=== PATIENT | male | born 1965 | race Caucasian/White ===

== ENCOUNTER → 2018-11-14 12:04 | Outpatient (CLI) | payer OTHER, SELFPAY ==
[2018-11-14 12:07] LABS: Adenovirus F 40/41, stool Not Detected (NotDetected); Astrovirus Not Detected (NotDetected); Campylobacter Not Detected (NotDetected); Clostridium Difficile A/B, PCR Not Detected (NotDetected); Cryptosporidium Not Detected (NotDetected); Cyclospora Cayetanesis Not Detected (NotDetected); Entamoeba histolytica Not Detected (NotDetected); Enteroaggregative E coli Not Detected (NotDetected); Enteropathogenic E coli Not Detected (NotDetected); Enterotoxigenic E coli Not Detected (NotDetected); Giardia lamblia Not Detected (NotDetected); Plesimonas Shigalloides, PCR Not Detected (NotDetected); Rotavirus A Not Detected (NotDetected); Salmonella, PCR Not Detected (NotDetected); Sapovirus Not Detected (NotDetected); Shiga-like toxin E coli Not Detected (NotDetected); Shigella Enterovasive E coli Not Detected (NotDetected); Vibrio Cholerae Not Detected (NotDetected); Vibrio, PCR Not Detected (NotDetected); Yersinia Entercolitica, PCR Not Detected (NotDetected)
[2018-11-14 15:10] LABS: Norovirus Detected (NotDetected)
== END ==
PROVIDERS: Visit Provider Nurse Practitioner Family
DX: R19.7 Diarrhea, unspecified (principal)
CPT/HCPCS: 87507

== ENCOUNTER 2022-06-27 17:38 | Emergency (ER) | payer SELFPAY ==
--- NOTE | 2022-06-27 17:45 | PC.NURSE ---
Brought pt into triage room for assessment. PT advises that he was helping his dad walk earlier this date when his dad became weak and fell. Pt advises he is having pain in between his shoulders and neck. that feels tingly and burning. V/S were: 130/84 HR 77 O2 sats 99% on room air Advised pt that ED volume was increased at this time and we would get him back as soon as we could. PT agreeable at this time
[2022-06-27 20:49] VITALS: BP 0/0; PULSE 0; RESP 0; TEMP -17.7; TEMP 0; O2SAT 0
== END 2022-06-27 20:59 | disposition left against medical advice (07) ==
LOC: ER 20:58
PROVIDERS: Emergency Provider Emergency Medicine; PCP Family Medicine
DX: Z53.21 Procedure and treatment not carried out due to patient leaving prior to being seen by health care provider (principal)

== ENCOUNTER 2022-08-17 08:33 | Emergency (ER) | payer OTHER, SELFPAY ==
[2022-08-17 08:50] VITALS: BP 128/76; PULSE 87; RESP 18; TEMP 36.9; O2SAT 98; BMI 26.7
--- NOTE | 2022-08-17 09:05 | EXP.UTC ---
Discharge Plan Disposition Patient Disposition: Home, Self-Care Condition: Good Prescriptions Prescriptions: New ondansetron 4 mg tablet,disintegrating 4 mg PO Q8H PRN (Reason: nausea and vomiting) Qty: 10 0RF No Action olanzapine 5 mg tablet 5 mg PO DAILY 30 Days Qty: 15 fluoxetine 40 mg capsule 40 mg PO DAILY 30 Days Qty: 30 pravastatin 10 mg tablet 10 mg PO DAILY 30 Days Qty: 30 Referrals Follow up/Referrals: Regine Bauman MD [Primary Care Provider] - See instructions Activity Restrictions/Add. Instructions Additional Instructions/Restrictions: Drink extra fluids with and between meals. If you have difficulty drinking, try very small amounts of water or suck on ice chips. ? Avoid fruit juices, as these do not replace minerals and can actually increase diarrhea. ? Children and adults can use sports drinks to replenish electrolytes. Younger children and infants should use products formulated for children, like oral rehydration solutions. ? Eat food in small amounts and let your stomach recover. ? Get lots of rest. You may feel tired or weak. ? No greasy or fried foods for the next 24-48 hours BRAT diet Bananas Rice Apples and [place] ? Make sure to drink plenty of liquids ? Return if needed ? Straight to ER if any life threatening symptoms ? Zofran as prescribed ? You was given an outpatient order for diarrhea panel, please collect specimen and bring back to outpatient lab then call back to the [facility] or follow up with family doctor for results ? Follow up with family doctor in the next 48-72 hours if no improvement or any worsening of symptoms Clinical Impressions Clinical Impression: Nausea vomiting and diarrhea Instructions Patient Instructions: Diarrhea, DI for Nausea -- Adult, Nausea and Vomiting-Adult Discharge ED Provider: Sofi Santos [facility] HPI General Stated complaint: Abd pain, vomitting, diarrhea Mode of Arrival: Ambulatory Source of Information: Patient Limitations: No Limitations Time Seen by Provider: 01/11/23 08:50 Description of Symptoms (Recalled from Triage Doc. by RN): stomach virus, vomiting, diarrhea HEENT Symptoms (Recalled from RN notes): No Resp Symptoms (Recalled from RN notes): No Skin Symptoms (Recalled from RN notes): No MS Symptoms (Recalled from RN notes): No Functional Status (Recalled from RN notes): n/a Related Data Home Medications Medication Instructions Recorded Confirmed fluoxetine 40 mg capsule 40 mg PO DAILY mood 30 days ##30 02/26/18 08/17/22 olanzapine 5 mg tablet 5 mg PO DAILY Anxiety 30 days ##15 02/26/18 08/17/22 pravastatin 10 mg tablet 10 mg PO DAILY Cholesterol 30 days 02/26/18 08/17/22 ##30 Previous Rx's Medication Instructions Recorded ondansetron 4 mg disintegrating 4 mg PO Q8H PRN nausea and 08/17/22 tablet vomiting #10 tabs Allergies Allergy/AdvReac Type Severity Reaction Status Date / Time No Known Allergies Allergy Verified 08/17/22 08:55 Worker's Comp Is this a Worker's Comp case?: No [facility] Disclaimer: The information contained in this section may have been updated after the patient was seen, as this information can be updated by other users. Social History Smoking Status: Never smoker alcohol intake: never current occupational status: employed Travel in the last 8 weeks: None household members: family housing: house caffeine: No ROS Obtained: Yes All systems reviewed & no additional complaints except as documented and Yes Systems reviewed as appropriate & no additional complaints except as documented ENT Ears, Nose, Mouth, and Throat: Reports system reviewed and no additional complaints, except as documented and Reports as per HPI Respiratory Respiratory: Reports system reviewed and no additional complaints, except as documented and Reports as per HPI Gastrointestinal Gastrointestingal: Reports
[2022-08-17 09:24] LABS: Coronavirus 19, PCR Not Detected (NotDetected); Influenza A, PCR Not Detected (NotDetected); Influenza B, PCR Not Detected (NotDetected)
[2022-08-17 09:49] VITALS: BP 128/76; PULSE 87; RESP 19; TEMP 36.9; O2SAT 98
== END 2022-08-17 09:48 | disposition home or self-care (01) ==
PROVIDERS: Emergency Provider Nurse Practitioner; PCP Family Medicine
DX: R11.2 Nausea with vomiting, unspecified (principal); R19.7 Diarrhea, unspecified
CPT/HCPCS: 99212; 99213; C9803; G0463; J2405; U0003; U0005

== ENCOUNTER → 2022-08-17 11:17 | Outpatient (CLI) | payer OTHER, SELFPAY ==
[2022-08-17 11:22] LABS: Adenovirus F 40/41, stool Not Detected (NotDetected); Astrovirus Not Detected (NotDetected); Campylobacter Not Detected (NotDetected); Clostridium Difficile A/B, PCR Not Detected (NotDetected); Cryptosporidium Not Detected (NotDetected); Cyclospora Cayetanesis Not Detected (NotDetected); Entamoeba histolytica Not Detected (NotDetected); Enteroaggregative E coli Not Detected (NotDetected); Enteropathogenic E coli Not Detected (NotDetected); Enterotoxigenic E coli Not Detected (NotDetected); Giardia lamblia Not Detected (NotDetected); Plesimonas Shigalloides, PCR Not Detected (NotDetected); Rotavirus A Not Detected (NotDetected); Salmonella, PCR Not Detected (NotDetected); Sapovirus Not Detected (NotDetected); Shiga-like toxin E coli Not Detected (NotDetected); Shigella Enterovasive E coli Not Detected (NotDetected); Vibrio Cholerae Not Detected (NotDetected); Vibrio, PCR Not Detected (NotDetected); Yersinia Entercolitica, PCR Not Detected (NotDetected)
[2022-08-17 17:12] LABS: Norovirus Detected (NotDetected)
--- NOTE | 2022-08-17 17:15 | PC.NURSE ---
Spoke with Pt about critical stool lab results.
== END ==
PROVIDERS: PCP Family Medicine; Visit Provider Nurse Practitioner
DX: R19.7 Diarrhea, unspecified (principal); A08.11 Acute gastroenteropathy due to Norwalk agent
CPT/HCPCS: 87507

== ENCOUNTER 2023-07-17 11:37 | Emergency (ER) | payer OTHER, SELFPAY ==
[2023-07-17 11:50] VITALS: BP 162/97; PULSE 80; RESP 18; TEMP 36.7; O2SAT 98; BMI 29.1
--- NOTE | 2023-07-17 11:58 | EXP.UTC ---
Discharge Plan Disposition Patient Disposition: Home, Self-Care Condition: Good Prescriptions Prescriptions: New azithromycin [Zithromax] 250 mg tablet 250 mg PO UD DOSE PK Qty: 6 0RF Rx Instructions: Take two (2) tablets today, then one (1) tablet days #2 thru #5 benzonatate [benzonatate] 100 mg capsule 100 mg PO TIDP PRN (Reason: Cough) Qty: 30 0RF ondansetron 4 mg Tablet,Disintegrating 4 mg PO Q8H PRN (Reason: Nausea) Qty: 12 0RF No Action olanzapine 5 mg tablet 5 mg PO DAILY 30 Days Qty: 15 fluoxetine 40 mg capsule 40 mg PO DAILY 30 Days Qty: 30 pravastatin 10 mg tablet 10 mg PO DAILY 30 Days Qty: 30 pravastatin 20 mg tablet 20 mg PO DAILY Patient Comments: TAKE 1 TABLET BY MOUTH ONCE DAILY Referrals Follow up/Referrals: Regine Bauman MD [Primary Care Provider] - See instructions Activity Restrictions/Add. Instructions Additional Instructions/Restrictions: Drink plenty of fluids. Take tylenol or ibuprofen for pain or fever. Take the medications as directed. Follow up with your regular doctor. GO TO THE ER FOR ANY WORSENING SYMPTOMS Clinical Impressions Clinical Impression: Acute viral syndrome, Sinusitis Instructions Patient Instructions: DI for Viral Syndrome, Coronavirus Disease 2019, Preventing the Spread of Coronavirus Discharge Instructions Discharge ED Provider: Byron Coppola [facility] General Stated complaint: cough,headache,achey,runny nose Time Seen by Provider: 07/17/23 11:58 History of Present Illness Provider Complaint: He states that for the past 4 days he has had headache, cough, chest and sinus congestion, and body aches. Related Data Home Medications Medication Instructions Recorded Confirmed fluoxetine 40 mg capsule 40 mg PO DAILY mood 30 days ##30 02/26/18 07/17/23 olanzapine 5 mg tablet 5 mg PO DAILY Anxiety 30 days ##15 02/26/18 07/17/23 pravastatin 10 mg tablet 10 mg PO DAILY Cholesterol 30 days 02/26/18 07/17/23 ##30 pravastatin 20 mg tablet 20 mg PO DAILY 07/17/23 07/17/23 Previous Rx's Medication Instructions Recorded azithromycin 250 mg tablet 250 mg PO UD DOSE PK #6 tabs 07/17/23 (Zithromax) benzonatate 100 mg capsule 100 mg PO TIDP PRN Cough #30 caps 07/17/23 ondansetron 4 mg disintegrating 4 mg PO Q8H PRN Nausea #12 tabs 07/17/23 tablet Allergies Allergy/AdvReac Type Severity Reaction Status Date / Time No Known Allergies Allergy Verified 07/17/23 12:03 [facility] Disclaimer: The information contained in this section may have been updated after the patient was seen, as this information can be updated by other users. Social History Smoking Status: Never smoker alcohol intake: never current occupational status: employed Travel in the last 8 weeks: None household members: family housing: house caffeine: No ROS Obtained: Yes All systems reviewed & no additional complaints except as documented Constitutional Constitutional: Reports chills and Reports fever(s) Eyes Eyes: Denies eye discharge ENT Ears, Nose, Mouth, and Throat: Reports as per HPI Cardiovascular Cardiovascular: Denies chest pain Respiratory Respiratory: Denies chest congestion and Reports cough Gastrointestinal Gastrointestingal: Reports nausea; Denies abdominal pain, constipation, cramping, diarrhea or vomiting Musculoskeletal Musculoskeletal: Denies arthralgias Integumentary/Breasts Skin/Breast: Denies rash Neurologic Neurologic: Denies paresthesias Physical Exam General General appearance: alert and in no apparent distress Eye Eye exam: Present normal appearance, PERRL and EOMI ENT ENT exam: Present mucous membranes moist and normal external ear exam Expanded ENT Exam External ear exam: Present normal external inspection TM/Canal exam: Bilateral TM: erythema and bulging Nose exam: Absent sinus tenderness Nasal speculum exam: Bilater
[2023-07-17 12:06] LABS: UTC Influenza A Antigen Negative (Negative); UTC Influenza B Antigen Negative (Negative)
[2023-07-17 12:44] VITALS: BP 142/97; PULSE 80; RESP 18; TEMP 36.7; O2SAT 98
== END 2023-07-17 12:44 | disposition home or self-care (01) ==
PROVIDERS: Emergency Provider Nurse Practitioner Family; PCP Family Medicine
DX: J01.90 Acute sinusitis, unspecified (principal); R51.9 Headache, unspecified; R05.9 Cough, unspecified; R09.81 Nasal congestion; R09.89 Other specified symptoms and signs involving the circulatory and respiratory systems; M79.18 Myalgia, other site; B34.9 Viral infection, unspecified
CPT/HCPCS: 87635; 87804; 99212; 99214; G0463

== ENCOUNTER 2024-05-15 09:36 | Outpatient (CLI) | payer OTHER, SELFPAY ==
--- NOTE | 2024-05-15 09:50 | XR_ITS ---
FINAL REPORT CLINICAL HISTORY: Acute cough FINDINGS: Two views of the chest were obtained. The heart size and pulmonary vascularity are within normal limits. The mediastinum is normal. No acute pulmonary abnormality is identified. There is no pneumothorax. The bony thorax is intact. IMPRESSION: No active cardiopulmonary disease. Reviewed, Interpreted and Dictated by Corenlio Bates III, MD Transcribed by Nicol Connell Authenticated and [facility]
== END 2024-05-15 23:59 | disposition home or self-care (01) ==
PROVIDERS: PCP Family Medicine; Visit Provider Family Medicine
DX: R05.9 Cough, unspecified (principal)
CPT/HCPCS: 71046

== ENCOUNTER 2024-07-26 14:14 | Emergency (ER) | payer OTHER, SELFPAY ==
[2024-07-26 14:25] VITALS: BP 131/86; PULSE 74; RESP 19; TEMP 36.6; O2SAT 98; BMI 27.8
--- NOTE | 2024-07-26 14:38 | ED_ITS ---
Discharge Plan Disposition Patient Disposition: Home, Self-Care Condition: Good Prescriptions Prescriptions: No Action No Known Home Medications Referrals Follow up/Referrals: Regine Bauman MD [Primary Care Provider] - See instructions Activity Restrictions/Add. Instructions Additional Instructions/Restrictions: *RICE, Rest the extremity, Ice 15-20 minutes 3-4 times daily, Compress- wear the yue wrap as discussed as much as possible to help reduce swelling and pain, Elevate the extremity when at rest *Elevate when resting? *Ibuprofen as directed on package every 6-8 hours as needed for pain an inflammation. If need something more can take Tylenol in between doses of Ibuprofen to help Immediately follow up with your family doctor for new or worsening of symptoms, or no noticeable improvement over the next 3-5 days Make sure to follow up for xrays if pain and symptoms continue Clinical Impressions Clinical Impression: Fall Qualifiers: Encounter type: initial encounter Qualified Code(s): W19.XXXA - Unspecified fall, initial encounter Instructions Patient Instructions: How To Perform RICE (Rest, Ice, Compress, Elevate), DI for Abrasion Print Language Print Language: Omani Discharge ED Provider: Sofi Santos [facility] General Stated complaint: ao 07/26, L arm/collar bone pain Mode of Arrival: Ambulatory Source of Information: Patient Limitations: No Limitations Time Seen by Provider: 07/26/24 14:38 Description of Symptoms (Recalled from Triage Doc. by RN): PATIENT STATES THAT HE FELL TODAY AND C/O LEFT KNEE, CHEST, AND LOWER BACK PAIN HEENT Symptoms (Recalled from RN notes): No Resp Symptoms (Recalled from RN notes): No Skin Symptoms (Recalled from RN notes): No MS Symptoms (Recalled from RN notes): Yes Functional Status (Recalled from RN notes): WNL History of Present Illness Provider Complaint: Patient states that he fell earlier today, states that he has a scratch on his left elbow but able to move and bend it without difficulty, having some collar bone pain thinks that when he fell his chin hit the center of his chest and that is sore, kind of twisted his back a little and bumped his knee States that he didnt hit his head and denies LOC states that he just wanted to get checked and get his elbow cleaned up Related Data Home Medications ?Medication ?Instructions ?Recorded ?Confirmed No Known Home Medications 07/26/24 07/26/24 Allergies Allergy/AdvReac Type Severity Reaction Status Date / Time No Known Allergies Allergy Verified 07/17/23 12:03 Worker's Comp Is this a Worker's Comp case?: No [facility] Disclaimer: The information contained in this section may have been updated after the patient was seen, as this information can be updated by other users. Medical History (Updated 07/26/24 @ 14:47 by Sofi Santos APRN) Depression Anxiety Hyperlipidemia Surgical History (Updated 07/26/24 @ 14:38 by Cristel Chaudhary RN) H/O left wrist surgery Social History Smoking Status: Never smoker alcohol intake: never current occupational status: employed Travel in the last 8 weeks: None household members: family housing: house caffeine: No Have you lived/traveled outside [place] in past 30 days?: No Contact w/someone who lives/traveled outside [place] past 30 days?: No Exposure to someone with infectious disease in past 14 days?: No Do you have a fever (greater than 100.4 F or 38 C)?: No Have you tested positive for COVID-19: No Exposed to someone with COVID-19 in past 14 days?: No Do you have a sore throat?: No Do you have a cough?: No Do you have any weakness?: No Do you have any diarrhea?: No Are you experiencing any unusual bleeding?: No Do you have any muscle aches/pain?: Yes Do you have any abdominal pain?: No Are you experiencing loss of taste or smell?: No ROS Obtained: Yes All systems reviewed & no additional complaints except as documented and Yes Systems reviewed as appropriate & no additional complaints except as documented Constitutional Constitutional: Reports system reviewed and no additional complaints, except as documented, Reports as per HPI and Denies headache(s) ENT Ears, Nose, Mouth, and Throat: Reports system reviewed and no additional complaints, except as documented, Reports as per HPI and Denies headache(s) Cardiovascular Cardiovascular: Reports system reviewed and no additional complaints, except as documented and Reports as per HPI Respiratory Respiratory: Reports system reviewed and no additional complaints, except as documented and Reports as per HPI Gastrointestinal Gastrointestingal: Reports system reviewed and no additional complaints, except as documented and as per HPI Genitourinary Male Genitourinary: Reports system reviewed and no additional complaints, except as documented and Reports as per HPI Musculoskeletal Musculoskeletal: Reports system reviewed and no additional complaints, except as documented and Reports as per HPI Comments: collar bone pain, left elbow abrasion, contusion to left knee, hit chin on center of chest, denies neck pain reports feels like he pulled his back a little on left side Neurologic Neurologic: Denies headache(s) Physical Exam General General appearance: alert and in no apparent distress Eye Eye exam: Present normal appearance, PERRL and EOMI ENT ENT exam: Present normal exam, normal oropharynx, mucous membranes moist and TM's normal bilaterally Neck Neck exam: Present normal inspection, full ROM and trachea midline; Absent tenderness Chest Chest inspection: Present tenderness Expanded Chest Exam Male Torso: 2 1. reports tenderness with palpation, no obvious bruising noted, reports when he fell chin hit the area and now it is sore Respiratory Respiratory exam: Present normal lung sounds bilaterally; Absent respiratory distress or wheezes Cardiovascular Cardiovascular exam: Present regular rate, normal rhythm and normal heart sounds Expanded Upper Extremity Exam Left: Shoulder exam: Present normal inspection, full ROM, tenderness and other (tenderness noted over clavicle area with palpation); Absent swelling, abrasion, laceration or ecchymosis Arm exam: Present normal inspection Elbow exam: Present abrasion (abrasion noted, patient moving and bending elbow without difficulty) Expanded Lower Extremity Exam Left: Knee exam: Present normal inspection and full ROM; Absent tenderness, swelling or abrasion Lower leg exam: Present normal inspection Ankle exam: Present normal inspection Foot/toe exam: Present normal inspection Neurovascular/Tendon exam: Present normal capillary refill Neurological Exam Neurological exam: Present alert, oriented X3 and normal gait Medical Decision Making Medical Records Screening: Per USPSTF and CDC recommendations, given the prevalence of disease in our region, it is our hospital?s policy to screen for HIV and viral Hepatitis for all patients aged 18 and over and those with ongoing risk factors. Miles Inquiry Pt receiving controlled substance: No Miles was queried for this patient: No Vital Signs: 07/26/24 14:25 Temperature 97.8 F Temperature Source Oral Pulse Rate [Left Brachial] 74 Respiratory Rate 19 Blood Pressure [Left Arm] 131/86 Blood Pressure Mean [Left Arm] 101 Blood Pressure Source [Left Arm] Automatic Cuff Blood Pressure Position [Left Arm] Sitting 02 Sat by Pulse Oximetry 98 Oxygen Delivery Method Room Air Medical Decision Narrative: Discussed with patient about xrays to make sure nothing is broken and he declined States that he wants elbow cleaned up and bandaged and he wants to go home if he is still having pain tomorrow he will return for xrays Patient aware of risks and declined at this time, states has at home that doesnt drive and wants to get home, Patient again informed of recommendation of xray and he declined again aware of risks even states just wants elbow looked at and go home
[2024-07-26 14:48] VITALS: BP 131/86; PULSE 74; RESP 19; TEMP 36.6; O2SAT 98
== END 2024-07-26 14:51 | disposition home or self-care (01) ==
PROVIDERS: Emergency Provider Nurse Practitioner; PCP Family Medicine
DX: W19.XXXA Unspecified fall, initial encounter (principal); M79.602 Pain in left arm; M25.512 Pain in left shoulder; M25.562 Pain in left knee; M54.50 Low back pain, unspecified
CPT/HCPCS: 99212; G0381

== ENCOUNTER 2024-10-11 13:04 | Emergency (ER) | payer OTHER, SELFPAY ==
[2024-10-11 13:08] VITALS: BP 129/87; PULSE 92; RESP 27; TEMP 36.6; O2SAT 100; BMI 24.4
--- NOTE | 2024-10-11 13:09 | PC.NURSE ---
Pt brought back to triage room for assessment. He is A&Ox4 but tremulous, and reports I don't know, maybe my sugar is off . FS 90.
--- NOTE | 2024-10-11 13:13 | PC.NURSE ---
Dr Lagos in triage room for assessment
--- NOTE | 2024-10-11 13:15 | XR_ITS ---
FINAL REPORT CLINICAL HISTORY: chest pain FINDINGS: CHEST 2 VIEWS PA AND LATERAL The heart is normal in size. The mediastinum is unremarkable. The lungs are clear. There is no pneumothorax. IMPRESSION: No acute process. Reviewed, Interpreted and Dictated by Escobar Mora MD Transcribed by Nnacy Saravia Authenticated and [facility]
--- NOTE | 2024-10-11 13:18 | ECG_ITS ---
APPROVED REPORT Exam: Resting ECG HR:95 bpm ECG Measurements Heart Rate 95 AXES QRSd 77 QRS 16 QT 345 T 71 QTc 398 Conclusion SUPRAVENTRICULAR RHYTHM ABNORMAL RHYTHM ECG UNCONFIRMED REPORT Electronically signed by : TARAH BRUNO, 10/12/2024 05:44:30
[2024-10-11 13:39] LABS: VBG Base Excess -1.4 mmol/L (-2.4-2.3); VBG HCO3 20.9 mmol/L (23-30); VBG Oxygen Saturation 84.7 % (50-70); VBG Total CO2 21.6 mmol/L (23-27)
[2024-10-11 13:43] LABS: Lactate Venous 2.4 mmol/L (0.4-2.0); VBG PCO2 24.1 mmol/L (35-51); VBG PH 7.56 mmol/L (7.31-7.41)
--- NOTE | 2024-10-11 13:57 | ED_ITS ---
Discharge Plan Disposition Chief Complaint: Anxiety Prescriptions Prescriptions: No Action No Known Home Medications Referrals Follow up/Referrals: Regine Bauman MD [Primary Care Provider] - See instructions Print Language Print Language: Stateless Discharge ED Provider: Yary Lagos General Adult HPI General Chief complaint: Anxiety Stated complaint: poss blood sugar issue, shaking, Time Seen by Provider: 10/11/24 13:33 Mode of Arrival: Wheelchair Source of Information: Patient, Spouse and Medical Record Description of Symptoms (Recalled from ER Triage Doc. by RN): Pt c/o intermittent chest pain, SOA, weakness, dizziness, anxiety, and possible low blood sugar. States this has been happening since Mon (10/09). States he has been dealing with alot of court issues & custody issues with Grandchildren. He reports pain to ABD d/t I can't eat much . Rates pain 5/10 on [employer]. He reports dysuria. Pt is fatigued. He feels like he can't sleep and he hard to concentrate . History of Present Illness HPI narrative: Patient is a 59-year-old with past medical history significant for anxiety presents emergency department for chest pain shortness of breath weakness dizziness. Has had worsening symptoms since 10/09 patient has not slept well since then and has had significant anxiety because he has had many court issues and custody issues with grandchildren. He reports 4 out of 10 diffuse abdominal pain because he has not eaten in 2 days he also notes intermittent dysuria and severe fatigue. He wishes to sleep. Symptoms did not start suddenly but have progressively worsened after home difficulties.. Related Data Home Medications ?Medication ?Instructions ?Recorded ?Confirmed No Known Home Medications 07/26/24 10/11/24 Allergies Allergy/AdvReac Type Severity Reaction Status Date / Time No Known Allergies Allergy Verified 10/11/24 13:28 [facility] Disclaimer: The information contained in this section may have been updated after the patient was seen, as this information can be updated by other users. Medical History Depression Anxiety Hyperlipidemia Surgical History H/O left wrist surgery Social History Smoking Status: Never smoker alcohol intake: never current occupational status: employed Travel in the last 8 weeks: None household members: family housing: house caffeine: No Have you lived/traveled outside [place] in past 30 days?: No Contact w/someone who lives/traveled outside [place] past 30 days?: No Exposure to someone with infectious disease in past 14 days?: No Do you have a fever (greater than 100.4 F or 38 C)?: No Have you tested positive for COVID-19: No Exposed to someone with COVID-19 in past 14 days?: No Do you have a sore throat?: No Do you have a cough?: No Do you have any weakness?: Yes Do you have any diarrhea?: No Are you experiencing any unusual bleeding?: No Do you have any muscle aches/pain?: No Do you have any abdominal pain?: No Are you experiencing loss of taste or smell?: No Other Medical History Have you received the Flu Vaccine for this season: No ROS Obtained: Yes All systems reviewed & no additional complaints except as documented Physical Exam General General appearance: alert and anxious Comment: Hyperventilating Eye Eye exam: Present PERRL ENT ENT exam: Present normal exam Respiratory Respiratory exam: Present normal lung sounds bilaterally and other (Hyperventilating) Cardiovascular Cardiovascular exam: Present regular rate and normal rhythm Abdominal Exam Abdominal exam: Present soft; Absent distention, tenderness or guarding Extremities Exam Extremities exam: Present normal inspection; Absent tenderness Neurological Exam Neurological exam: Present alert, oriented X3, CN II-XII intact, normal gait and other (No visual deficits no cerebellar findings); Absent motor sensory deficit Psychiatric Psychiatric exam: Present anxious Skin Skin exam: Present warm and dry Medical Decision Making Medical Records Screening: Per USPSTF and CDC recommendations, given the prevalence of disease in our region, it is our hospital?s policy to screen for HIV and viral Hepatitis for all patients aged 18 and over and those with ongoing risk factors. Miles Inquiry Pt receiving controlled substance: No Vital Signs: 10/11/24 13:08 Temperature 97.8 F Temperature Source Oral Pulse Rate [Right] 92 H Respiratory Rate 27 H Blood Pressure [Right Arm] 129/87 Blood Pressure Mean [Right Arm] 101 Blood Pressure Source [Right Arm] Automatic Cuff 02 Sat by Pulse Oximetry 100 Oxygen Delivery Method Room Air Lab Data Lab Results 10/11/24 13:26: WBC 10.7, RBC 6.20, Hgb 17.7, Hct 50.6, MCV 81.6, MCH 28.5, MCHC 35.0, RDW 11.9, Plt Count 334, MPV 11.6 H, Neut % (Auto) 75.8, Lymph % (Auto) 17.1, Payne % (Auto) 6.3, Eos % (Auto) 0.3, Baso % (Auto) 0.3, Neut # (Auto) 8.1 H, Lymph # (Auto) 1.8, Payne # (Auto) 0.7, Eos # (Auto) 0.0, Baso # (Auto) 0.0, Total Counted 100, Neutrophils % (Manual) 81 H, Lymphocytes % (Manual) 14, Monocytes % (Manual) 5, Platelet Estimate Normal, RBC Morphology Normal, Sodium 137, Potassium 3.8, Chloride 105, Carbon Dioxide 22, Anion Gap 13.8, BUN 14, Creatinine 1.10, Estimated Creat Clear 80, Estimated GFR 68, Est GFR ( Amer) 83, Glucose 105 H, Calcium 10.1, Magnesium 2.0, Total Bilirubin 1.6 H, AST 44, ALT 36, Alkaline Phosphatase 111, Troponin I < 0.01, Total Protein 8.2, A lbumin 5.2 H, Globulin 3.0, Albumin/Globulin Ratio 1.7, Lipase 168, TSH 1.52, T hyroxine (T4) 13.6 H 10/11/24 13:26 10/11/24 13:26 Orders (Tests/Meds): ED MEDICATIONS Discontinued Medications Generic Name Dose Route Start Last Admin Trade Name Fadiq PRN Reason Stop Dose Admin Lorazepam 0.5 mg 10/11/24 13:33 10/11/24 14:10 Lorazepam 0.5mg Tablet PO 10/11/24 13:34 0.5 mg ONCE ONE Administration ORDERS Category Date Time Status XR chest 2V Stat Exams 10/11/24 13:15 Completed Complete Blood Count Man Dif Stat Lab 10/11/24 13:26 Completed Comprehensive Metabolic Panel Stat Lab 10/11/24 13:26 Completed Lipase Stat Lab 10/11/24 13:26 Completed Magnesium Stat Lab 10/11/24 13:26 Completed T4 (Thyroxine) Stat Lab 10/11/24 13:26 Completed Thyroid Stimulating Hormone Stat Lab 10/11/24 13:26 Completed Troponin I Q3H Lab 10/11/24 16:30 Ordered Troponin I Q3H Lab 10/11/24 19:30 Ordered Troponin I Stat Lab 10/11/24 13:26 Completed Urinalysis and Microscopic Stat Lab 10/11/24 13:24 Ordered VBG [Venous Blood Gas] Stat RT 10/11/24 13:24 Received HEART Score History (anamnesis): Slightly suspicious ECG: Non-specific disturbance Age: 45-65 years Risk factors: 1-2 risk factors Troponin: </= normal limit HEART Score: 3 Medical Decision Narrative: In summary, this 59-year-old male presents to the emergency department today with multiple complaints including generalized weakness chest pain shortness of breath anxiety difficulty sleeping difficulty eating. On initial evaluation patient is hemodynamically stable saturating appropriately on room air afebrile no acute distress. Differential diagnosis includes but is not limited to panic attack, pneumothorax, thyrotoxicosis, ACS, stroke. Based on these concerns, I ordered CBC CMP EKG chest x-ray troponin TSH T4. NIH 0 ECG personally interpreted demonstrates no acute ST elevation ST depression T wave inversions concerning for ischemia, significant artifact. Patient received Ativan for treatment. Labs personally reviewed demonstrate appropriate glucose, mild elevation in T4, negative troponin. XR personally interpreted demonstrates no pneumothorax. On reassessment patient has resolution of symptoms after 0.5 mg of Ativan. Symptoms are most consistent with a panic attack. Patient was previously on Prozac however it has since been off of medications. Recommended following up with his primary care physician to consider restarting antidepressants. Critical Care Critical Care Time Critical Care Time: No
[2024-10-11] MEDS: LORazepam 0.5MG TABLET 0.5 MG PO (14:10)
--- NOTE | 2024-10-11 14:30 | PC.NURSE ---
Pt and brought back to room 5. He is placed on the monitor.
[2024-10-11 14:38] LABS: MANUAL DIFFERENTIAL MANUAL DIFFERENTIAL (MANUAL DIFF)
[2024-10-11 14:39] LABS: Basophils % 0.3 % (0.1-2.0); Eosinophils % 0.3 % (0.1-12.0); Hematocrit 50.6 % (42.0-52.0); Hemoglobin 17.7 g/dL (14.1-18.0); Lymphocytes # 1.8 K/mm3 (0.7-4.5); Lymphocytes % 17.1 % (10-50); Mean Corpuscular Hemoglobin 28.5 pg (27.0-31.2); Mean Corpuscular Volume 81.6 fl (80-94); Mean Platelet Volume 11.6 fl (7.4-10.4); Monocytes # 0.7 K/mm3 (0.1-1.0); Monocytes % 6.3 % (1.7-9.3); Neutrophils # 8.1 K/mm3 (1.8-7.8); Neutrophils % 75.8 % (37.0-80.0); Platelet Count 334 K/mm3 (142-424); Red Cell Distribution Width 11.9 % (11.5-17.5); White Blood Count 10.7 K/mm3 (4.8-10.8)
[2024-10-11 14:45] LABS: Albumin Level 5.2 g/dl (3.5-5.0); Chloride 105 mmol/L (98-107)
[2024-10-11 14:46] LABS: Potassium 3.8 mmoL/L (3.5-5.1); Sodium 137 mmol/L (136-145)
[2024-10-11 14:48] LABS: Alanine Aminotransferase 36 U/L (12-78); Alkaline Phosphatase 111 U/L (38-126); Anion Gap 13.8 mEq/L (5-15); Aspartate Amino Transferase 44 U/L (17-59); Bilirubin,Total 1.6 mg/dl (0.2-1.3); Blood Urea Nitrogen 14 mg/dl (9-20); Carbon Dioxide 22 mmol/L (22.0-30.0); Creatinine Clearance Estimated 80 mL/min (50-200); Estimated Glomerular Filt Rate 68 ml/min (>60); GFR (African American) 83 ML/MIN (>60); Lipase 168 U/L (23-300)
[2024-10-11 14:49] LABS: Albumin/Globulin Ratio 1.7 (1.1-1.8); Calcium 10.1 mg/dl (8.4-10.2); Glucose 105 mg/dl (74-100); Total Protein,Serum 8.2 g/dl (6.3-8.2)
[2024-10-11 15:04] LABS: Lymphocytes % 14 % (10-50); Monocytes % 5 % (2-9); Neutrophils % 81 % (42-76); Total Cells Counted 100
[2024-10-11 15:05] LABS: Platelet Estimate Normal; RBC Morphology Normal
[2024-10-11 15:06] LABS: T4 (Thyroxine) 13.6 ug/dl (5.53-11.0)
[2024-10-11 15:13] LABS: Troponin I < 0.01 ng/ml (0.00-0.034)
[2024-10-11 15:19] LABS: Thyroid Stimulating Hormone 1.52 uIU/mL (0.465-4.68)
[2024-10-11 15:32] VITALS: BP 119/85; PULSE 76; RESP 16; O2SAT 98
[2024-10-11 15:55] VITALS: BP 115/79; PULSE 87; RESP 14; TEMP 36.4; O2SAT 98
== END 2024-10-11 15:57 | disposition home or self-care (01) ==
PROVIDERS: Emergency Provider Student in an Organized Health Care Education/Training Program; PCP Family Medicine
DX: R07.9 Chest pain, unspecified (principal); R42 Dizziness and giddiness; R53.1 Weakness
CPT/HCPCS: 71046; 80053; 82803; 83690; 83735; 84436; 84443; 84484; 85007; 85014; 85018; 85048; 85049; 93005; 99284